=== PATIENT | female | born 1960 | race Caucasian/White ===

== ENCOUNTER → 2017-08-29 | Outpatient (CLI) | payer OTHER ==
[~2017-08-29] MED LIST: ACETAMINOPHEN-1 EAC1 PO; HYDROCODONE-AP1 EAC6 PO; MEDROLDOSEPACK PO; MOBIC15 MG PO; NAPROSYN500 MG PO
== END ==
LOC: RAD 08:48
DX: M54.5 Low back pain (principal); M25.552 Pain in left hip

== ENCOUNTER → 2017-09-06 | Outpatient (CLI) | payer OTHER ==
[~2017-09-06] VITALS: Ht 152.4 cm; Wt 78.0 kg
--- NOTE | ~2017-09-06 | HPC ---
[facility] [place] [address] PAIN MANAGEMENT CONSULTATION Name: ZAINAB DIXON Room #: REG [facility].#: [id number] Admission: 09/06/17 Attend Phys: Kennedi Stern MD Discharge: Date of : 62 Report #: [id number] THIS REPORT FOR: //name// CC: Kennedi Cannon MD DATE OF SERVICE: 09/06/2017 CHIEF COMPLAINT: Pain in the low back and left hip. HISTORY OF PRESENT ILLNESS: The patient is a 57-year-old female who has been referred to the pain clinic for evaluation and treatment. The patient states that she is having pain and discomfort in her low back, buttocks, and down the left thigh area. She notes that the pain started around 08/19/2017. Pain worsened so by 08/22/2017. Pain was quite problematic. She rates it as a 10+. She describes it as shooting and aching pain that radiates down into the left side of her leg to the level of the knee. Notes that sitting, walking, and getting up from a sitting position can exacerbate her pain. 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. She continues to work in spite of this pain and discomfort. She was seen by a chiropractor. She was told that it was muscular. She did try Aleve. She did not feel that, that was working. She has been walking with a limp and finds it harder and harder to stand and perform activities of daily living. She denies any trauma to her back. She feels like she had some pain somewhat like this a year or so ago. She was told that she had sciatic pain. This seems a little different. ALLERGIES: No known drug allergies. MEDICATIONS: CODEINE #3 one tablet q.4-6 hours p.r.n. pain. PAST MEDICAL HISTORY: No significant past medical history. PAST SURGICAL HISTORY: No surgical history. FAMILY HISTORY: No family history is available. The patient speaks Bengali as her primary language and has some difficulty with Welsh. SOCIAL HISTORY: She is a real estate transaction coordinator, works at [employer]. Denies use of tobacco. Denies use of alcohol. Denies use of illicit drugs. LABORATORY DATA: MRI of the lumbar spine dated 09/03/2017 1. L2-L3, there is no significant disk bulge. The central spinal canal is not grossly narrowed. There is no evidence of neural foraminal stenosis. 2. L3-L4, there is no significant disk bulge. The central spinal canal is not grossly narrowed. There is mild facet arthropathy asymmetrically greater on the [facility] [address] [place] [address] PAIN MANAGEMENT CONSULTATION Name: ZAINAB DIXON Room #: REG [facility] Jane#: [id number] Admission: 09/06/17 Attend Phys: Kennedi Stern MD Discharge: Date of : 62 Report #: [id number] right. There is no evidence for neural foraminal stenosis. 3. L4-L5, there is no significant disk bulge. The central spinal canal is not grossly narrowed. There is moderate facet arthropathy asymmetrically greater on the right. There is no evidence for neural foraminal stenosis. 4. L5-S1, there is no significant disk bulge. The central spinal canal is not grossly narrowed. There are developing small synovial cysts along the posterior aspect of the L5-S1 facet measuring 1 x 2 mm. There is no evidence of neural foraminal stenosis. PHYSICAL EXAMINATION: VITAL SIGNS: Blood pressure 103/76, pulse 63, respiratory rate 16, and room air saturation 98%. Height 5 feet, weight 172 pounds. BMI is 33. The patient has not fallen since we saw her last. She is walking with a limp as a result of her pain and discomfort. GENERAL: The patient is well-developed, well-nourished female. Appearance: Appears appropriate. She looks her stated age, oriented x 3, and alert. Affect is appropriate. Does have phonation and grimacing throughout the examination with certain maneuvers. HEENT: Head is atraumatic. Eye muscles are intact. Buccal membrane is moist. NECK: Without adenopathy or JVD. No masses. LUNGS: Clear to auscultation. HEART: Regular rate. Normal S1, S2. ABDOMEN: Soft, nontender. MUSCULOSKELETAL: Alignment appears normal, no scoliosis, no kyphosis, and no lordosis. Gait is antalgic, walks favoring her left leg. NEUROLOGIC: Sensation in the upper extremity judged to be within normal limits, +1 reflexes bilaterally. Muscle strength is judged to be 5/5 in the major muscle groups of the upper extremity. Lumbar flexion and extension caused the patient to complain of some discomfort in the left buttocks area. Left lateral rotation, right lateral rotation, and left and right bending all increased some discomfort and complained of pain and discomfort in the left thigh. 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 Deep tendon reflexes are +1 for the patellar and ankle reflexes. Straight leg raising is negative. The patient does complain of some discomfort in her left leg with movement and rotation of the leg. Left and right SI joints are tested and no complaint with Todd's maneuver. Hip flexors are within normal limits. The patient is able to dorsiflex and heel stand and able to toe stand with foot eversion without problem. Skin is judged to be within normal limits with quick capillary refill. The patient is lying on her left side causes some pain and discomfort in the left thigh area. Right lateral decubitus position with left side up causes pain and discomfort with palpation in the area of the left greater trochanteric area. Pushing and pressure in this area reproduces the patient's pain and discomfort. IMPRESSION: 1. Left greater trochanteric bursitis. [facility] [address] [place] [address] PAIN MANAGEMENT CONSULTATION Name: ZAINAB DIXON Room #: REG [facility]#: [id number] Admission: 09/06/17 Attend Phys: Kennedi Stern MD Discharge: Date of : 62 Report #: [id number] 2. Generally good health. RECOMMENDATIONS: We discussed treatment options with the patient. Risks and benefits of a greater trochanteric bursa injection were discussed. Possible complications which could include but are not limited to infection, increased muscle soreness, bleeding, and worsening of pain were discussed. The patient elects to proceed. PROCEDURE NOTE: The patient was placed in the right lateral decubitus position. The greater trochanteric area on the left was sterilely prepped with a chlorhexidine solution and allowed to dry. A 25-gauge needle was then advanced into the area of the left greater trochanter and bursa. Aspiration was performed. No fluid was withdrawn. A total of 80 mg Depo-Medrol and 10 mL of 0.5% bupivacaine was injected. The patient's pain decreased from 10-0 at the time of discharge. She will follow up in the near future. She will call us if she has any problems with her medications. We may consider the use of Mobic 15 mg 1 p.o. every day to note its efficacy. We would like to thank you for letting us to participate in her care. We hope she continues to improve. <ELECTRONICALLY SIGNED> By: Kennedi Stern MD 09/27/17 [id number] Kennedi Stern MD /[facility]
[2017-09-06 08:16] VITALS: BP 103/78
== END | disposition home or self-care (01) ==
LOC: PAIN 06:52
DX: M70.62 Trochanteric bursitis, left hip (principal); Z98.890 Other specified postprocedural states

== ENCOUNTER 2018-10-10 07:25 | Emergency (ER) | payer OTHER ==
[~2018-10-10] VITALS: Ht 152.4 cm; Wt 76.2 kg
[2018-10-10 07:53] LABS: ABSOLUTE NEUTROPHILS 4.6 thou/uL (1.4-8.2); BASOPHILS 0.9 % (0.0-2.0); HEMATOCRIT 40.3 % (37.0-47.0); HEMOGLOBIN 13.5 gm/dL (12.0-15.0); MCH 27.7 pg (26.0-34.0); MCHC 33.5 g/dL (28.0-37.0); MCV 82.9 fL (80.0-100.0); MONOCYTES 7.1 % (1.0-8.0); PLATELET COUNT 243 thou/uL (150-400); RBC 4.87 mil/uL (4.20-5.00); RDW 13.8 % (10.5-14.5); WBC 7.6 thou/uL (4.0-11.0)
[2018-10-10 08:03] LABS: CALCIUM 9.2 mg/dL (8.5-10.1); CREATININE 0.7 mg/dL (0.6-1.0); POTASSIUM 3.7 mmol/L (3.5-5.1)
[2018-10-10] MEDS ORDERED: AUGMENTIN 875-1 EACH PO (08:58)
[2018-10-10 09:07] VITALS: BP 125/56
== END 2018-10-10 09:00 | disposition home or self-care (01) ==
LOC: ER 07:25
PROVIDERS: Emergency Medicine
DX: R22.0 Localized swelling, mass and lump, head (principal); Z98.890 Other specified postprocedural states